=== PATIENT | female | born 1995 | race Caucasian/White ===

== ENCOUNTER 2017-02-06 21:06 | Outpatient (CLI) | payer OTHER ==
[2017-02-06 21:43] LABS: APPEARANCE,URINE CLOUDY; BILIRUBIN,URINE NEGATIVE (NEGATIVE); GLUCOSE, URINE NEGATIVE (NEGATIVE); KETONES,URINE NEGATIVE (NEGATIVE); LEUKOCYTE ESTERASE,URINE LARGE (NEGATIVE); NITRITE,URINE NEGATIVE (NEGATIVE); PROTEIN,URINE NEGATIVE (NEGATIVE); URINE SPECIFIC GRAVITY 1.012; UROBILINOGEN,URINE NEGATIVE mg/dL (<2.0)
[2017-02-06 21:51] LABS: URINE BARBITURATES SCREEN NEGATIVE; URINE METHADONE SCREEN NEGATIVE; URINE OPIATES LOW NEGATIVE; URINE PHENCYCLIDINE SCREEN NEGATIVE
[2017-02-06 21:58] LABS: AMNISURE (ROM) NEGATIVE (NEGATIVE)
--- NOTE | 2017-02-06 22:12 | Non Stress Test Report ---
Non Stress Test Datetime Report Generated by CPN: 02/06/2017 22:11 DEMOGRAPHIC Test Number: 1 EGA NST: 36.2 INDICATION Indication for Study: Ordered by Provider MONITORING Monitor Explained: Monitor Explained; Test Explained; Patient Verbalized Understanding Time on Monitor: 02/06/2017 21:24 Time off Monitor: 02/06/2017 21:58 NST Duration: 34 NST INTERVENTIONS NST Interventions: PO Hydration; Reposition Patient Physician Notified NST: Dr. Neilsen BABY A: [id number] BABY A Movement : Present Contraction Frequency : none FHR Baseline : 140 Accelerations : 15X15 Decelerations : None Variability : Moderate 6-25bpm NST Review: Meets Criteria for Reactive NST NST Review and Verified By : MIKI Clemens Results: Reactive NST REPORT Report Trigger: Send Report (Annotations: Data stored by [facility] on behalf of user)
== END 2017-02-06 21:18 | disposition home or self-care (01) ==
LOC: LC 21:06
PROVIDERS: ATTEND Specialist
PROC: 4A1HXCZ Monitoring of Products of Conception, Cardiac Rate, External Approach (ICD-10-PCS; principal; 2017-02-06)
DX: Z36 Encounter for antenatal screening of mother (principal); Z3A.36 36 weeks gestation of pregnancy
CPT/HCPCS: 59025; 80307; 81001; 84112

== ENCOUNTER 2017-02-17 21:26 | Outpatient (CLI) | payer OTHER ==
[2017-02-17 22:30] LABS: AMNISURE (ROM) NEGATIVE (NEGATIVE)
[2017-02-17 22:33] LABS: ABSOLUTE LYMPHOCYTES (AUTO) 1.5 10^3/uL (0.5-4.7); ABSOLUTE MONOCYTES (AUTO) 0.6 10^3/uL (0.1-1.4); ABSOLUTE NEUT (AUTO) 8.1 10^3/uL (1.7-8.2); BASOPHILS % (AUTO) 0.4 % (0-2); EOSINOPHILS % (AUTO) 0.4 % (0-6); HEMATOCRIT 38.2 % (36.0-47.0); HEMOGLOBIN 13.4 g/dL (12.0-15.5); LYMPHOCYTES % (AUTO) 14.8 % (13-45); MEAN CORPUSCULAR HEMOGLOBIN 33.1 pg (27.0-33.4); MEAN CORPUSCULAR HGB CONC 35.1 g/dL (32.0-36.0); MEAN CORPUSCULAR VOLUME 94 fl (80-97); MONOCYTES % (AUTO) 5.8 % (3-13); RED BLOOD COUNT 4.06 10^6/uL (3.72-5.28); RED CELL DISTRIBUTION WIDTH 13.4 % (11.5-14.0); SEGMENTED NEUTROPHILS % (AUTO) 78.6 % (42-78); WHITE BLOOD COUNT 10.4 10^3/uL (4.0-10.5)
--- NOTE | 2017-02-17 22:52 | RADIOLOGY REPORT (SQ) ---
EXAM DESCRIPTION: U/S OB LIMITED COMPLETED DATE/TIME: 02/17/2017 10:38 pm REASON FOR STUDY: placenta status location, status,post fall COMPARISON: None. TECHNIQUE: Limited transabdominal grayscale ultrasound for evaluation of specific requested obstetri guillermo parameters. LIMITATIONS: None. FINDINGS: LUIS: 5.9 cm cm. FHR: 162 beats per minute. PRESENTATION: Cephalic. OTHER: Fundal placenta IMPRESSION: LIMITED OBSTETRICAL ULTRASOUND WITH MEASURED PARAMETERS DELINEATED ABOVE. Trimester of : Third trimester - 28 weeks to delivery. TECHNICAL DOCUMENTATION: JOB ID: [id number] [email or web address]- All Rights Reserved
[2017-02-17 22:56] LABS: APPEARANCE,URINE SLIGHTLY-CLOUDY; BILIRUBIN,URINE NEGATIVE (NEGATIVE); GLUCOSE, URINE NEGATIVE (NEGATIVE); KETONES,URINE TRACE mg/dL (NEGATIVE); LEUKOCYTE ESTERASE,URINE LARGE (NEGATIVE); NITRITE,URINE NEGATIVE (NEGATIVE); PROTEIN,URINE NEGATIVE (NEGATIVE); URINE SPECIFIC GRAVITY 1.006; UROBILINOGEN,URINE NEGATIVE mg/dL (<2.0)
[2017-02-17 23:14] LABS: URINE BARBITURATES SCREEN NEGATIVE; URINE METHADONE SCREEN NEGATIVE; URINE OPIATES LOW NEGATIVE; URINE PHENCYCLIDINE SCREEN NEGATIVE
[2017-02-18 01:37] LABS: TOTAL RBC COUNT 2000
[2017-02-18 01:40] LABS: TYPE IN FILE? TYPE IN FILE
[2017-02-18 03:28] VITALS: BP 133/77
== END 2017-02-18 03:25 | disposition home or self-care (01) ==
LOC: LC 21:26
PROVIDERS: ATTEND Obstetrics & Gynecology
PROC: 4A1HXCZ Monitoring of Products of Conception, Cardiac Rate, External Approach (ICD-10-PCS; principal; 2017-02-17)
DX: Z36 Encounter for antenatal screening of mother (principal); Z3A.37 37 weeks gestation of pregnancy; W19.XXXA Unspecified fall, initial encounter
CPT/HCPCS: 59025; 84112; 86900; 86901; 36415; 86850; 85025; 81005; 85460; 80307; 76815; J2790

== ENCOUNTER → 2017-02-27 | Outpatient (CLI) | payer OTHER ==
--- NOTE | 2017-02-27 20:05 | Non Stress Test Report ---
Non Stress Test Datetime Report Generated by CPN: 02/27/2017 20:04 DEMOGRAPHIC Test Number: 2 EGA NST: 37.6 INDICATION Indication for Study: Decreased Movement; Other Indication for Study (NST) Other: fall VITAL SIGNS Temperature - NST: 98.0 Pulse - NST: 72 RESP - NST: 18 NBPSYS NST: 133 NBPDIA NST: 77 URINE RESULTS Urine Protein, NST: Negative Urine Ketones - NST: Positive Urine Glucose - NST: Negative Urine Blood - NST: Negative MONITORING Monitor Explained: Monitor Explained; Test Explained; Patient Verbalized Understanding Time on Monitor: 02/17/2017 21:43 Time off Monitor: 02/18/2017 03:01 NST Duration: 318 NST INTERVENTIONS NST Interventions: PO Hydration; Other NST Interventions Other: ultrasound Physician Notified NST: dr milan BABY A: [id number] BABY A Movement : Decreased Contraction Frequency : irregular FHR Baseline : 140 Accelerations : 15X15 Decelerations : None Variability : Moderate 6-25bpm NST Review: Meets Criteria for Reactive NST NST Review and Verified By : Kenroy Navarro RN NST Results: Reactive NST COMMENTS NST Comments: positive kb scan received two doses of rhogam, placental status per ultrasound fundal without issue. NST REPORT Report Trigger: Send Report
[2017-02-27 20:30] LABS: APPEARANCE,URINE SLIGHTLY-CLOUDY; BILIRUBIN,URINE NEGATIVE (NEGATIVE); GLUCOSE, URINE NEGATIVE (NEGATIVE); KETONES,URINE NEGATIVE (NEGATIVE); LEUKOCYTE ESTERASE,URINE LARGE (NEGATIVE); NITRITE,URINE NEGATIVE (NEGATIVE); PROTEIN,URINE 30 mg/dL (NEGATIVE); URINE SPECIFIC GRAVITY 1.017; UROBILINOGEN,URINE NEGATIVE mg/dL (<2.0)
[2017-02-27 20:35] LABS: AMNISURE (ROM) NEGATIVE (NEGATIVE)
[2017-02-27 20:51] LABS: URINE BARBITURATES SCREEN NEGATIVE; URINE METHADONE SCREEN NEGATIVE; URINE OPIATES LOW NEGATIVE; URINE PHENCYCLIDINE SCREEN NEGATIVE
--- NOTE | 2017-02-27 21:58 | Non Stress Test Report ---
Non Stress Test Datetime Report Generated by CPN: 02/27/2017 21:57 DEMOGRAPHIC Test Number: 3 EGA NST: 39.2 INDICATION Indication for Study: Ordered by Provider Indication for Study (NST) Other: LC MONITORING Monitor Explained: Monitor Explained; Test Explained; Patient Verbalized Understanding; Other Time on Monitor: 02/27/2017 20:16 Time off Monitor: 02/27/2017 21:44 NST Duration: 88 NST INTERVENTIONS NST Interventions: None BABY A Movement : Present Contraction Frequency : irreg FHR Baseline : 145 Accelerations : 15X15 Decelerations : None Variability : Moderate 6-25bpm NST Review: Meets Criteria for Reactive NST NST Review and Verified By : B Daniel, RN NST Results: Reactive NST REPORT Report Trigger: Send Report
== END | disposition home or self-care (01) ==
LOC: LC 19:43
PROVIDERS: ATTEND Specialist
PROC: 4A1HXCZ Monitoring of Products of Conception, Cardiac Rate, External Approach (ICD-10-PCS; principal; 2017-02-27)
DX: O36.8130 Decreased fetal movements, third trimester, not applicable or unspecified (principal); Z3A.37 37 weeks gestation of pregnancy
CPT/HCPCS: 59025; 80307; 81005; 84112

== ENCOUNTER 2017-03-04 22:01 | Outpatient (CLI) | payer OTHER ==
[2017-03-04 22:40] LABS: APPEARANCE,URINE SLIGHTLY-CLOUDY; BILIRUBIN,URINE NEGATIVE (NEGATIVE); GLUCOSE, URINE NEGATIVE (NEGATIVE); KETONES,URINE NEGATIVE (NEGATIVE); LEUKOCYTE ESTERASE,URINE MODERATE (NEGATIVE); NITRITE,URINE NEGATIVE (NEGATIVE); PROTEIN,URINE 30 mg/dL (NEGATIVE); URINE SPECIFIC GRAVITY 1.011; UROBILINOGEN,URINE NEGATIVE mg/dL (<2.0)
[2017-03-04 23:07] LABS: URINE BARBITURATES SCREEN NEGATIVE; URINE METHADONE SCREEN NEGATIVE; URINE OPIATES LOW NEGATIVE; URINE PHENCYCLIDINE SCREEN NEGATIVE
--- NOTE | 2017-03-04 23:45 | Non Stress Test Report ---
Non Stress Test Datetime Report Generated by CPN: 03/04/2017 23:45 DEMOGRAPHIC EGA NST: 40.0 INDICATION Indication for Study: Other Indication for Study (NST) Other: LC URINE RESULTS Urine Protein, NST: Positive Urine Ketones - NST: Negative Urine Glucose - NST: Negative Urine Blood - NST: Negative MONITORING Monitor Explained: Monitor Explained; Test Explained; Patient Verbalized Understanding Time on Monitor: 03/04/2017 22:24 Time off Monitor: 03/04/2017 23:15 NST Duration: 51 NST INTERVENTIONS NST Interventions: PO Hydration; Reposition Patient Physician Notified NST: Dr Harry BABY A Movement : Present Contraction Frequency : Irreg FHR Baseline : 150 Accelerations : 15X15 Decelerations : None Variability : Moderate 6-25bpm NST Review: Meets Criteria for Reactive NST NST Review and Verified By : Kenroy Navarro RN NST Results: Reactive NST REPORT Report Trigger: Send Report
== END 2017-03-04 23:26 | disposition home or self-care (01) ==
LOC: LC 22:01
PROVIDERS: ATTEND Student in an Organized Health Care Education/Training Program
PROC: 4A1HXCZ Monitoring of Products of Conception, Cardiac Rate, External Approach (ICD-10-PCS; principal; 2017-03-04)
DX: O47.1 False labor at or after 37 completed weeks of gestation (principal); Z3A.40 40 weeks gestation of pregnancy
CPT/HCPCS: 59025; 80307; 81005

== ENCOUNTER 2017-03-05 15:02 | Inpatient (IN) | payer OTHER ==
[2017-03-05] MEDS ORDERED: DINOPROSTONE 10 MG VAGINAL INSERT.SR PV PRN (15:28)
[2017-03-05] MEDS ORDERED: OXYTOCIN/NORMAL SALINE 20 UNIT/1,000 ML RTUINJ IV PRN (15:28)
[2017-03-05] MEDS ORDERED: RINGERS SOLUTION,LACTATED 300 ML IV ONE (15:28)
[2017-03-05 15:37] LABS: APPEARANCE,URINE SLIGHTLY-CLOUDY; BILIRUBIN,URINE NEGATIVE (NEGATIVE); GLUCOSE, URINE NEGATIVE (NEGATIVE); KETONES,URINE NEGATIVE (NEGATIVE); LEUKOCYTE ESTERASE,URINE MODERATE (NEGATIVE); NITRITE,URINE NEGATIVE (NEGATIVE); PROTEIN,URINE 30 mg/dL (NEGATIVE); URINE SPECIFIC GRAVITY 1.023; UROBILINOGEN,URINE NEGATIVE mg/dL (<2.0)
[2017-03-05 15:55] LABS: URINE BARBITURATES SCREEN NEGATIVE; URINE METHADONE SCREEN NEGATIVE; URINE OPIATES LOW NEGATIVE; URINE PHENCYCLIDINE SCREEN NEGATIVE
[2017-03-05] MEDS ORDERED: DINOPROSTONE 10 MG VAGINAL INSERT.SR ONE (16:25)
[2017-03-05 16:28] LABS: ABSOLUTE LYMPHOCYTES (AUTO) 1.2 10^3/uL (0.5-4.7); ABSOLUTE MONOCYTES (AUTO) 0.6 10^3/uL (0.1-1.4); BASOPHILS % (AUTO) 0.5 % (0-2); EOSINOPHILS % (AUTO) 0.2 % (0-6); HEMATOCRIT 35.6 % (36.0-47.0); HEMOGLOBIN 12.5 g/dL (12.0-15.5); HGB HCT DIFFERENCE 1.9; LYMPHOCYTES % (AUTO) 15.7 % (13-45); MEAN CORPUSCULAR HEMOGLOBIN 32.6 pg (27.0-33.4); MEAN CORPUSCULAR HGB CONC 35.2 g/dL (32.0-36.0); MEAN CORPUSCULAR VOLUME 93 fl (80-97); MONOCYTES % (AUTO) 7.2 % (3-13); RED BLOOD COUNT 3.84 10^6/uL (3.72-5.28); RED CELL DISTRIBUTION WIDTH 13.8 % (11.5-14.0); SEGMENTED NEUTROPHILS % (AUTO) 76.4 % (42-78); WHITE BLOOD COUNT 7.9 10^3/uL (4.0-10.5)
[2017-03-05] MEDS: RINGERS SOLUTION,LACTATED 1,000 ML IV PRN (17:34)
[2017-03-06] MEDS ORDERED: PENICILLIN G-K 5 MILLION UNIT VIAL ONE (05:38)
[2017-03-06] MEDS: RINGERS SOLUTION,LACTATED 1,000 ML IV PRN (05:45)
[2017-03-06] MEDS ORDERED: OXYTOCIN/NORMAL SALINE 20 UNIT/1,000 ML RTUINJ ONE (05:55)
[2017-03-06] MEDS ORDERED: EPHEDRINE SULFATE INJ 50 MG/1 ML AMPULE ONE (06:07)
[2017-03-06] MEDS ORDERED: FENTANYL CITRATE INJ/PF 100 MCG/2 ML AMPUL ONE (06:07)
[2017-03-06] MEDS ORDERED: PHENYLEPHRINE HCL INJ/PF 10 MG/1 ML SDV ONE (06:08)
[2017-03-06] MEDS ORDERED: BUPIVACAINE HCL 0.25 % INJ/PF (2.5 MG/1 ML) 30 ML VIAL ONE (06:08)
[2017-03-06] MEDS ORDERED: FENTANYL/BUPIVACAINE/NS/PF 200 MCG/100 ML RTUINJ EPI ONE (06:08)
[2017-03-06] MEDS ORDERED: MISOPROSTOL 0.2 MG TABLET ONE (08:03)
[2017-03-06] MEDS ORDERED: LIDOCAINE 1% INJ-PF (10 MG/ML) 30 ML SDV ONE (08:03)
--- NOTE | 2017-03-06 11:12 | Delivery Summary ---
Del Sum A-C Datetime Report Generated by CPN: 03/06/2017 11:12 DELIVERY PERSONNEL DELIVERY PERSONNEL: [id number] Delivery Doctor:: Litzy Rivera CNM Labor and Delivery Nurse:: Chika Higginbotham RNregister of wills Nurse:: Holley Berrios Emts/GLUING MACHINE ADJUSTER: Fabienne Semar, RN ENDOCRINOLOGY Emts/GLUING MACHINE ADJUSTER: June Dyeda MATERNAL INFORMATION Delivery Anesthesia: Epidural Medications After Delivery: Pitocin Bolus-Please Comment; Pitocin Drip 20 Units/1000ml NSS Estimated Blood Loss (ml): 250 Maternal Complications: None Provider Comments: SVDVM over perineal and labial lacerations, with body cord, partial nuchal and compound right hand, baby somersaulted through, mouth suctioned with bulb. vigorous, to mothers abd. Cord clamped x2 cut per FOB, Placenta delivered via freeman. Placenta very small with marginal cord insertion and thin cord. Lacerations repaired, hemostasis acheived. EBL 250. Apgars 8,9. Mother and infant stable. LABOR SUMMARY EDC: 03/04/2017 00:00 No. Babies in Womb: 1 Attempted: No Labor Anesthesia: Epidural LABOR INFORMATION Reason for Induction: Oligohydramnios Onset of Labor: 03/06/2017 04:19 Complete Dilatation: 03/06/2017 08:21 Cervical Ripening Agents: Cervidil Oxytocin: Augmentation Group B Beta Strep: positive Antibiotics # of Doses: 1 Antibiotics Time of Last Dose: 0544 Name of Antibiotic Given: PCN Steroids Given: None Reason Steroids Not Administered: Not Applicable MEMBRANES Membranes Rupture Method: Spontaneous Rupture of Membranes: 03/06/2017 04:19 Length of Rupture (hr): 5.23 Amniotic Fluid Color: Clear Amniotic Fluid Amount: Small Amniotic Fluid Odor: Normal STAGES OF LABOR Stage 1 hr: 4 Stage 1 min: 2 Stage 2 hr: 1 Stage 2 min: 12 Stage 3 hr: 0 Stage 3 min: 6 Total Time in Labor hr: 5 Total Time in Labor min: 20 VAGINAL DELIVERY Episiotomy: None Laceration Type: Perineal Other Laceration: bilateral labial Laceration Repair: Yes Laceration Repair Note: 1* bilateral labial lacs repaired with 2.0 chromic and 2* perineal lac, lidocaine used for repair Sponge Count Correct: N/A Sharps Count Correct: N/A CSECTION DELIVERY Primary Indication: N/A Secondary Indication: N/A CSection Incidence: N/A Labor: N/A Elective: N/A CSection Incision: N/A BABY A INFORMATION Delivery Date/Time: 03/06/2017 09:33 Method of Delivery: Vaginal Born in Route : No : N/A Forceps: N/A Vacuum Extraction: N/A Shoulder Dystocia : No PRESENTATION/POSITION BABY A Presentation: Cephalic Cephalic Presentation: Vertex Vertex Position: Right Occipital Anterior Breech Presentation: N/A PLACENTA INFORMATION BABY A Placenta Delivery Time : 03/06/2017 09:39 Placenta Method of Delivery: Spontaneous Placenta Status: Retained SCORES BABY A Heart Rate 1 min: >100 bpm Resp Effort 1 min: Good Cry Reflex Irritability 1 min: Cough or Sneeze or Pulls Away Muscle Tone 1 min: Active Motion Color 1 min: Blue/Pale Resuscitation Effort 1 min: Tactile Stimulation SCORE 1 MIN: 8 Heart Rate 5 min: >100 bpm Resp Effort 5 min: Good Cry Reflex Irritability 5 min: Cough or Sneeze or Pulls Away Muscle Tone 5 min: Active Motion Color 5 min: Body [place], Extremities Blue Resuscitation Effort 5 min: Tactile Stimulation SCORE 5 MIN: 9 INFORMATION BABY A Gestational Age at Delivery: 40.2 Gestational Status: Full Term- 39- 40.6 Weeks Infant Outcome : Liveborn Infant Condition : Stable Sex: Male IDENTIFICATION BABY A Infant Verification Date/Time: 03/06/2017 10:40 ID Band Number: [id number] Mother's Name Verified: Yes Infant RN Verifying : APearl Higginbotham RN BL Malissa RN WEIGHT/LENGTH BABY A Infant Birthweight (gm): 2580 Infant Weight (lb): 5 Weight (oz): 11 Infant Length (in): 13.75 Infant Length (cm): 34.93 CORD INFORMATION BABY A No. Cord Vessels: 3 Nuchal Cord : Around Neck x1, Loose Nuchal Cord- Other: compound right hand, arm cord Cord Blood Taken: Yes-For Eval (Mom's Blood Type - or O+) Infant Suction: Mouth; Nose ASSESSMENT BABY A Complications: Multiple Variable Decels; Oligohydramnios Physical Findings at Delivery: Within Normal Limits Infant Respirations: Appears Normal Skin to Skin: Yes Nurses' Association Counselor/ALS Called : No Infant Care By: B Berrios RN Transferred To: Remains with Mother BABY B INFORMATION : N/A SIGNATURES Assignment: Jazzy House MD Signature: with User ID: [email or web address] : with User ID: [email or web address] : I was personally available for consultation and serving as supervising physician for the MLP.
--- NOTE | 2017-03-06 11:46 | Admission Physical ---
Datetime Report Generated by CPN: 03/06/2017 11:45 CURRENT ADMISSION Hx Assessment: The History has been Reviewed and is Current Chief Complaint: Sent from OB Office for Evaluation and Treatment - Please Specify Chief Complaint Other: sent in from office for luis of 4.8, efw: measuring 3 weeks behind by todays sono Indication for Induction: IUGR; Oligohydramnios Admit Plan: Admit to Unit; Initiate Labor Induction Protocol ALLERGIES Medication Allergies: Yes Medication Allergies: iodine (02/27/2017); acyclovir (02/27/2017) Medication Allergies: iodine (02/17/2017); acyclovir (02/17/2017) Medication Allergies: acyclovir, iodine Latex: No Latex Allergies Food Allergies: sammie Environmental Allergies: N/A OBSTETRICAL HISTORY EDC: 03/04/2017 00:00 : 1 Para: 0 Term: 0 : 0 SAB: 0 IAB: 0 Ectopic: 0 Livin Cesareans: 0 VBACs: 0 Multiple Births: 0 Gestational Diabetes: No Rh Sensitization: No Incompetent Cervix: No SHANNAN: No Infertility: No ART Treatment: No Uterine Anomaly: No IUGR: No Hx Previous C/S: No Macrosomia: No Hx Loss/Stillborn: No PIH: No Placenta Previa/Abruption: No Depression/PP Depression: No PTL/PROM: No Post Hemorrhage: No Current Procedures: Ultrasound; NST Obstetrical History Comments: G1- Current SEE RECORDS Alcohol: No Marijuana : No Cocaine: No Other Illicit Drugs: No Cigarettes: Never Smoker. 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 Surgery: No Heart Disease: No Hosp/Surgery: No Autoimmune Disorder: No Anesthetic Complications: No Kidney Disease: No Abnormal Pap Smear: No Neuro/Epilepsy: No Psychiatric Disorders: No Other Medical Diseases: No Hepatitis/Liver Disease: Yes Significant Family History: No Varicosities/Phlebitis: No Trauma/Violence : No Thyroid Dysfunction: No Medical History Comments: Hep C + (likely congenital) INFECTIOUS HISTORY Gonorrhea: No Genital Herpes: No Chlamydia: No Tuberculosis: No Syphilis: No Hepatitis: Yes HIV/AIDS Exposure: No Rash or Viral Illness: No HPV: No Infectious History Comments: Hep-C+ (likely congenital) PHYSICAL EXAM General: Normal HEENT: Normal Neurologic: Normal Thyroid: Deferred Heart: Normal Lungs: Normal Breast: Normal Back: Normal Abdomen: Normal Genitourinary Exam: Normal Extremities: Normal DTRs: Normal Pelvic Type: Adequate Vital Signs: Reviewed VAGINAL EXAM Dilatation: 1 Effacement: 75 Station: -2 Contraction Comments: rare MEMBRANES Membranes: Intact FETUS A EGA: 40.1 Monitoring: External US FHR- Baseline: 145 Variability: Moderate 6-25bpm Accelerations: 15X15 Decelerations: None Estimated Weight (gm): 3300 Presentation: Vertex Admit Comment: Pt sent from [facility] for IOL LUIS: 4.8, efw: 3 weeks behind Pt was transfer from [place] RH negative, received rhogam Hep C +, consider GI referral for Harvoni tx after delivery No FSE in labor Cervidil over night GBS + tx with start of pitocin. Plan for Pitocin in AM PLANS FOR LABOR AND DELIVERY Labor and Delivery: None Pain Management: Natural Feeding Preference: Breast Benefit of Breast Feed Discussed: Yes Circumcision: No INFORMED CONSENT Assignment: Devyn Muse DO Signature: with User ID: [email or web address] : with User ID: [email or web address]
[2017-03-06] MEDS ORDERED: ZOLPIDEM TARTRATE 5 MG TABLET PO PRN (11:52)
[2017-03-06] MEDS ORDERED: ACETAMINOPHEN WITH CODEINE #3 TABLET PO PRN ×2 (11:52)
[2017-03-06] MEDS ORDERED: DIPH/PERTUSS(ACELL)/TETANUS VAC/PF 0.5 ML SYR (>=10YO) IM PRN (11:52)
[2017-03-06] MEDS ORDERED: BENZOCAINE/MENTHOL AEROSOL SPRAY 56 ML TOP PRN (11:52)
[2017-03-06] MEDS ORDERED: DIBUCAINE 1% OINTMENT 28 GM TP PRN (11:52)
[2017-03-06] MEDS ORDERED: MEASLES,MUMPS&RUBELLA VACC/PF 0.5 ML VIAL SUBCUT PRN (11:52)
[2017-03-06] MEDS ORDERED: OXYTOCIN/NORMAL SALINE 20 UNIT/1,000 ML RTUINJ IV PRN (11:52)
[2017-03-06] MEDS: IBUPROFEN 800 MG TABLET PO SCH ×2 (14:06→21:07)
[2017-03-06] MEDS: DOCUSATE SODIUM 100 MG CAPSULE PO SCH (18:09)
[2017-03-06] MEDS: FERROUS SULFATE 325 MG TABLET PO SCH (18:10)
[2017-03-07] MEDS: IBUPROFEN 800 MG TABLET PO SCH ×3 (06:55→22:30)
[2017-03-07 07:44] LABS: HEMATOCRIT 29.3 % (36.0-47.0); HEMOGLOBIN 10.3 g/dL (12.0-15.5); HGB HCT DIFFERENCE 1.6; MEAN CORPUSCULAR HEMOGLOBIN 32.6 pg (27.0-33.4); MEAN CORPUSCULAR HGB CONC 34.9 g/dL (32.0-36.0); MEAN CORPUSCULAR VOLUME 93 fl (80-97); RED BLOOD COUNT 3.14 10^6/uL (3.72-5.28); WHITE BLOOD COUNT 8.4 10^3/uL (4.0-10.5)
--- NOTE | 2017-03-07 09:25 | PDOC PROGRESS REPORT ---
Subjective-OB Subjective: Post Delivery Day: 1 21 year old. Denies any needs at this time, states lochia is stable, pain well controlled, voiding without difficulty. Physical Exam (OB) Vital Signs: Temp Pulse Resp BP Pulse Ox 98.4 F 71 16 130/76 H 98 03/07/17 08:15 03/07/17 08:15 03/07/17 08:15 03/07/17 08:15 03/07/17 08:15 Intake & Output 03/06/17 03/07/17 03/08/17 06:59 06:59 06:59 Weight 79.55 kg - PIH/Pre-Eclampsia Clonus: Negative Headache: Absent Epigastric Pain: No Visual Changes: No - Lochia Lochia Amount: Small 10-25 ml Lochia Color: Rubra/Red - Abdomen Description: Tender, Soft, Round Hernia Present: No Fundal Description: Firm Fundal Height: u/u - u/2 Objective-Diagnostic Laboratory: 03/07/17 07:01 03/07/17 03/07/17 07:01 07:01 WBC 8.4 RBC 3.14 L Hgb 10.3 L D Hct 29.3 L MCV 93 MCH 32.6 MCHC 34.9 RDW 14.0 Plt Count 102 L Blood Type O NEGATIVE Assessment and Plan(PN) - Assessment and Plan (1) Acute blood loss anemia Is this a current diagnosis for this admission?: Yes Plan: ferrous sulfate increase dietary iron (2) Intrauterine growth restriction, delivered, current hospitalization Is this a current diagnosis for this admission?: Yes Plan: n/a delivered (3) Vaginal delivery Is this a current diagnosis for this admission?: Yes Plan: routine pp care - Time Spent with Patient Time with patient: Less than 15 minutes Critical Time spent with patient: Less than 15 minutes Medications reviewed and adjusted accordingly: Yes - Disposition Anticipated Discharge: Home Within: within 24 hours
[2017-03-07] MEDS: SENNOSIDES/DOCUSATE 8.6-50 MG 1 EACH TABLET PO SCH (09:40)
[2017-03-07] MEDS: FERROUS SULFATE 325 MG TABLET PO SCH ×2 (09:41→18:27)
[2017-03-07] MEDS: DOCUSATE SODIUM 100 MG CAPSULE PO SCH ×2 (09:41→18:27)
[2017-03-07] MEDS: PRENATAL VITAMIN W-O CA NO5/FE FUMARATE/FA CAPSULE PO SCH (09:41)
[2017-03-07] MEDS ORDERED: ONDANSETRON 4 MG TAB.RAPDIS PO PRN (11:44)
[2017-03-07] MEDS ORDERED: MEASLES,MUMPS&RUBELLA VACC/PF 0.5 ML VIAL SUBCUT PRN (15:00)
[2017-03-07] MEDS ORDERED: ZOLPIDEM TARTRATE 5 MG TABLET PO PRN (15:00)
[2017-03-07] MEDS ORDERED: DIPH/PERTUSS(ACELL)/TETANUS VAC/PF 0.5 ML SYR (>=10YO) IM PRN (15:00)
[2017-03-08] MEDS ORDERED: GLYCERIN/WITCH HAZEL LEAF 1 EACH MED..PAD TP PRN (04:00)
[2017-03-08] MEDS: IBUPROFEN 800 MG TABLET PO SCH ×2 (05:22→13:14)
[2017-03-08 08:12] VITALS: BP 133/74
--- NOTE | 2017-03-08 09:22 | PDOC PROGRESS REPORT ---
Subjective-OB Subjective: Post Delivery Day: 21 year old. Denies any needs at this time Doing well, pumping breasts, hsb at BS, , baby not going home today , problem with BS Physical Exam (OB) Vital Signs: Temp Pulse Resp BP Pulse Ox 97.8 F 96 16 133/74 H 99 03/08/17 07:39 03/08/17 07:39 03/08/17 07:39 03/08/17 07:39 03/08/17 07:39 Intake & Output 03/07/17 03/08/17 03/09/17 06:59 06:59 06:59 Intake Total 300 Balance 300 - PIH/Pre-Eclampsia DTR's: 2 + Clonus: Negative Headache: Absent Epigastric Pain: No Visual Changes: No - Lochia Lochia Amount: Small 10-25 ml Lochia Color: Rubra/Red - Abdomen Description: Soft, Flat Hernia Present: No Fundal Description: Firm, Midline Fundal Height: u/3 - u/4 Objective-Diagnostic Laboratory: 03/07/17 07:01 03/07/17 07:01 Blood Type O NEGATIVE Assessment and Plan(PN) - Assessment and Plan (1) Acute blood loss anemia Is this a current diagnosis for this admission?: Yes (2) Vaginal delivery Is this a current diagnosis for this admission?: Yes (3) Intrauterine growth restriction, delivered, current hospitalization Is this a current diagnosis for this admission?: Yes - Time Spent with Patient Time with patient: Less than 15 minutes Medications reviewed and adjusted accordingly: Yes - Disposition Anticipated Discharge: Home Within: Other - home today
--- NOTE | 2017-03-08 09:27 | PDOC DISCHARGE SUMMARY ---
Final Diagnosis Discharge Date: 03/08/17 - Final Diagnosis (1) Acute blood loss anemia Is this a current diagnosis for this admission?: Yes (2) Vaginal delivery Is this a current diagnosis for this admission?: Yes (3) Intrauterine growth restriction, delivered, current hospitalization Is this a current diagnosis for this admission?: Yes Discharge Data - Discharge Medication Home Medications: No122/Iron/Folic Acid [ Multi Tablet] 1 each PO DAILY MDD 1tab 02/06/17 Gestational Age: 40.1 Reason(s) for Admission: Induction of Labor, Group B Strep Positive Admission Note: IUGR, Oligohydramnios Procedures: NST, Ultrasound Intrapartum Procedure(s): Spontaneous Vaginal Delivery Complication(s): Laceration-Perineal, Laceration-Labial Laceration-Degree: 1st - [employer]arm[employer] Data Baby 1 Male Weight: 2.58 kg Home with Mother: No Complications: Yes - blood sugar - Diagnosis Test Laboratory: Temp Pulse Resp BP Pulse Ox 97.8 F 96 16 133/74 H 99 03/08/17 07:39 03/08/17 07:39 03/08/17 07:39 03/08/17 07:39 03/08/17 07:39 03/05/17 03/05/17 03/07/17 15:16 16:07 07:01 RBC 3.84 3.14 L Hgb 12.5 10.3 L D Hct 35.6 L 29.3 L Urine Opiates Screen NEGATIVE - Discharge information/Instructions Discharge Activity: Activity As Tolerated, No Lifting Over 10 Pounds, No Lifting /Push/Pulling, Pelvic Rest Discharge Diet: As Tolerated, Regular Disposition: HOME, SELF-CARE Follow up with: [facility] in: 4, Weeks
[2017-03-08] MEDS: PRENATAL VITAMIN W-O CA NO5/FE FUMARATE/FA CAPSULE PO SCH (10:35)
[2017-03-08] MEDS: DOCUSATE SODIUM 100 MG CAPSULE PO SCH (10:35)
[2017-03-08] MEDS: SENNOSIDES/DOCUSATE 8.6-50 MG 1 EACH TABLET PO SCH (10:35)
[2017-03-08] MEDS: FERROUS SULFATE 325 MG TABLET PO SCH (10:35)
== END 2017-03-08 13:41 | disposition home or self-care (01) | DRG 774 ==
LOC: LR 15:02 → 2N 03-06 11:44
PROVIDERS: ADMIT Obstetrics & Gynecology; ATTEND Obstetrics & Gynecology
PROC: 10E0XZZ Delivery of Products of Conception, External Approach (ICD-10-PCS; principal; 2017-03-06)
PROC: 0HQ9XZZ Repair Perineum Skin, External Approach (ICD-10-PCS; 2017-03-06)
PROC: 4A1HXCZ Monitoring of Products of Conception, Cardiac Rate, External Approach (ICD-10-PCS; 2017-03-06)
PROC: 3E0234Z Introduction of Serum, Toxoid and Vaccine into Muscle, Percutaneous Approach (ICD-10-PCS; 2017-03-06)
DX: O41.03X0 Oligohydramnios, third trimester, not applicable or unspecified (principal); O99.834 Other infection carrier state complicating childbirth; D62 Acute posthemorrhagic anemia; O36.5930 Maternal care for other known or suspected poor fetal growth, third trimester, not applicable or unspecified; O99.02 Anemia complicating childbirth; O76 Abnormality in fetal heart rate and rhythm complicating labor and delivery; Z3A.40 40 weeks gestation of pregnancy; O70.0 First degree perineal laceration during delivery; O99.824 Streptococcus B carrier state complicating childbirth; O69.81X0 Labor and delivery complicated by cord around neck, without compression, not applicable or unspecified; O32.6XX0 Maternal care for compound presentation, not applicable or unspecified; O26.893 Other specified pregnancy related conditions, third trimester; Z22.8 Carrier of other infectious diseases; Z67.41 Type O blood, Rh negative; Z37.0 Single live birth
CPT/HCPCS: 36415; 80307; 81005; 85025; 85027; 85461; 86592; 86850; 86870; 86900; 86901; 88307; 94760; J2370; J2540; J2590; J2790; J3010; J3490; S0119

== ENCOUNTER 2017-03-15 12:18 | Emergency (ER) | payer OTHER ==
[2017-03-15] MEDS ORDERED: CEFTRIAXONE 1 GM/D5W RTU 1 GM/50 ML RTUPB IV ONE (12:32)
[2017-03-15] MEDS ORDERED: ACETAMINOPHEN 325 MG TABLET PO ONE (12:33)
--- NOTE | 2017-03-15 12:34 | ER Document Report ---
ED Medical Screen (RME) - General Chief Complaint: Pelvic Pain Stated Complaint: PAIN/ HIGH FEVERS Time Seen by Provider: 03/15/17 12:26 Mode of Arrival: Ambulatory Information source: Patient Notes: 21 yr old female 10 days post vag delivery with group b strep presents with fever since last night I spoke with Dr vargas explained fever tachycardia, dry lips, he defers on u/s , requests cbc , fluids and rocephin I have greeted and performed a rapid initial assessment of this patient. A comprehensive ED assessment and evaluation of the patient, analysis of test results and completion of the medical decision making process will be conducted by additional ED providers. PHYSICAL EXAMINATION: GENERAL: Well-appearing, well-nourished and in no acute distress. HEAD: Atraumatic, normocephalic. EYES: Pupils equal round extraocular movements intact, conjunctiva are normal. ENT: Nares patent NECK: Normal range of motion LUNGS: No respiratory distress Musculoskeletal: Normal range of motion NEUROLOGICAL: Normal speech, normal gait. PSYCH: Normal mood, normal affect. SKIN: dry lips TRAVEL OUTSIDE OF THE [place] IN LAST 30 DAYS: No - Related Data Allergies/Adverse Reactions: acyclovir Allergy (Verified 03/15/17 12:30) iodine Allergy (Verified 03/15/17 12:30) Past Medical History Renal/ Medical History: Denies: Hx Peritoneal Dialysis Physical Exam - Vital signs Vitals: Temp Pulse Resp BP Pulse Ox 100.6 F H 137 H 16 116/79 96 03/15/17 12:23 03/15/17 12:23 03/15/17 12:23 03/15/17 12:23 03/15/17 12:23 Course - Vital Signs Vital signs: Temp Pulse Resp BP Pulse Ox 100.6 F H 137 H 16 116/79 96 03/15/17 12:23 03/15/17 12:23 03/15/17 12:23 03/15/17 12:23 03/15/17 12:23
[2017-03-15] MEDS ORDERED: ONDANSETRON HCL INJ/PF 4 MG/2 ML SDV IV ONE (12:41)
[2017-03-15 12:55] LABS: ABSOLUTE LYMPHOCYTES (AUTO) 0.5 10^3/uL (0.5-4.7); ABSOLUTE MONOCYTES (AUTO) 0.3 10^3/uL (0.1-1.4); ABSOLUTE NEUT (AUTO) 6.8 10^3/uL (1.7-8.2); BASOPHILS % (AUTO) 0.4 % (0-2); EOSINOPHILS % (AUTO) 0.1 % (0-6); HEMATOCRIT 40.6 % (36.0-47.0); HEMOGLOBIN 14.1 g/dL (12.0-15.5); HGB HCT DIFFERENCE 1.7; LYMPHOCYTES % (AUTO) 6.3 % (13-45); MEAN CORPUSCULAR HEMOGLOBIN 32.1 pg (27.0-33.4); MEAN CORPUSCULAR HGB CONC 34.6 g/dL (32.0-36.0); MEAN CORPUSCULAR VOLUME 93 fl (80-97); MONOCYTES % (AUTO) 4.4 % (3-13); RED BLOOD COUNT 4.38 10^6/uL (3.72-5.28); RED CELL DISTRIBUTION WIDTH 14.3 % (11.5-14.0); SEGMENTED NEUTROPHILS % (AUTO) 88.8 % (42-78); WHITE BLOOD COUNT 7.7 10^3/uL (4.0-10.5)
[2017-03-15] MEDS: NORMAL SALINE 1000 ML 1,000 ML IV PRN ×2 (12:59→14:40)
[2017-03-15 13:16] LABS: ALANINE AMINOTRANSFERASE 32 U/L (9-52); ALBUMIN 3.9 g/dL (3.5-5.0); ALKALINE PHOSPHATASE 146 U/L (38-126); ANION GAP 14 (5-19); ASPARTATE AMINO TRANSFERASE 21 U/L (14-36); BILIRUBIN,DIRECT 0.3 mg/dL (0.0-0.4); BILIRUBIN,TOTAL 0.7 mg/dL (0.2-1.3); BLOOD UREA NITROGEN 9 mg/dL (7-20); CALCIUM 9.3 mg/dL (8.4-10.2); CARBON DIOXIDE 21 mmol/L (22-30); CHLORIDE 103 mmol/L (98-107); CREATININE RESULT 0.76 mg/dL (0.52-1.25); GLUCOSE 115 mg/dL (75-110); POTASSIUM 3.9 mmol/L (3.6-5.0); SODIUM 138.2 mmol/L (137-145); TOTAL PROTEIN 7.1 g/dL (6.3-8.2)
--- NOTE | 2017-03-15 14:30 | ER Document Report ---
ED General - General Chief Complaint: Pelvic Pain Stated Complaint: FEVER Time Seen by Provider: 03/15/17 12:26 Mode of Arrival: Ambulatory Information source: Patient Notes: Patient is currently 10 days after a vaginal delivery. Patient was positive for group B strep. Patient is . Patient does report fever since yesterday. Patient reports lower pelvic pain and low back pain. Patient denies any dysuria. Patient states she has had some vaginal discharge but states she spoke with her ASSISTANT WOMEN[employer] COACH who states that this is normal. TRAVEL OUTSIDE OF THE [place] IN LAST 30 DAYS: No - HPI Onset: Yesterday Onset/Duration: Gradual Quality of pain: Achy Pain Level: 3 Associated symptoms: Fever, Other - Pelvic pain, back pain. denies: Chest pain , Nonproductive cough, Productive cough, Nausea, Vomiting Exacerbated by: Movement Relieved by: Denies Similar symptoms previously: No Recently seen / treated by doctor: Yes - Related Data Allergies/Adverse Reactions: acyclovir Allergy (Verified 03/15/17 12:30) iodine Allergy (Verified 03/15/17 12:30) Past Medical History - General Information source: Patient Last Menstrual Period: 10 days - Social History Smoking Status: Never Smoker Frequency of alcohol use: None Drug Abuse: None Occupation: None Lives with: Family Family History: Reviewed & Not Pertinent Patient has suicidal ideation: No Patient has homicidal ideation: No - Medical History Medical History: Negative Renal/ Medical History: Denies: Hx Peritoneal Dialysis Surgical Hx: Negative Review of Systems - Review of Systems Constitutional: Fever. denies: Recent illness EENT: No symptoms reported Cardiovascular: No symptoms reported Respiratory: No symptoms reported. denies: Cough, Short of breath Gastrointestinal: Abdominal pain, Nausea, Poor appetite. denies: Diarrhea, Vomiting, Constipation Genitourinary: No symptoms reported. denies: Dysuria, Flank pain Female Genitourinary: Vaginal discharge. denies: Vaginal bleeding Musculoskeletal: Back pain Skin: No symptoms reported Hematologic/Lymphatic: No symptoms reported Neurological/Psychological: No symptoms reported Physical Exam - Vital signs Vitals: Temp Pulse Resp BP Pulse Ox 100.6 F H 137 H 16 116/79 96 03/15/17 12:23 03/15/17 12:23 03/15/17 12:23 03/15/17 12:23 03/15/17 12:23 - General General appearance: Appears well, Alert In distress: None - HEENT Head: Normocephalic, Atraumatic Eyes: Normal Conjunctiva: Normal Nasal: Normal Mouth/Lips: Normal Mucous membranes: Dry Pharynx: Normal Neck: Normal, Supple. No: Lymphadenopathy - Respiratory Respiratory status: No respiratory distress Chest status: Nontender Breath sounds: Normal. No: Rales, Rhonchi, Stridor, Wheezing Chest palpation: Subcutaneous emphysema - Cardiovascular Rhythm: Tachycardia Heart sounds: S1 appreciated, S2 appreciated Murmur: No - Abdominal Inspection: Normal Distension: No distension Bowel sounds: Normal Tenderness: Tender - suprapubic Organomegaly: No organomegaly - Genitourinary External exam: Laceration - healing lac to 4 oclock position of labia minora Speculum exam: Vaginal discharge Vaginal bleeding: None - Back Back: Tender - lateral side tenderness. No: CVA tenderness, Vertebra tenderness - Extremities General upper extremity: Normal inspection, Normal ROM General lower extremity: Normal inspection, Normal ROM - Neurological Neuro grossly intact: Yes Cognition: Normal Court[place] Coma Scale Eye Opening: Spontaneous [place] Coma Scale Verbal: Oriented [place] Coma Scale Motor: Obeys Commands Court[place] Coma Scale Total: 15 - Psychological Associated symptoms: Normal affect, Normal mood - Skin Skin Temperature: Warm Skin Moisture: Dry Skin Color: Pale Course - Re-evaluation Re-evalutation: 03/15/17 15:30 Patient's vital signs normalized, patient no longer tachycardic. Consulted with Dr. Rice regarding patient presentation and recommends consultation with ASSIST[employer] Dr. Kaur. Does not recommend any ultrasound imaging at this time. Consulted with Dr. Kaur who recommends placing patient on Augmentin 875 twice a day and having her to follow-up in the office on Saturday for recheck. Suspects that patient has likely endometritis Discussed plan of care with patient, discussed worsening signs or symptoms that patient should return immediately for. Patient verbalized understanding and agrees with plan of care at this time. No concern for sepsis at this time. Patient's vital signs have normalized and patient has defervesced. No vomiting while in the emergency department. Patient with no leukocytosis or findings concerning for UTI. 03/15/17 15:46 At discharge patient states that she is concerned about possible mastitis. Patient states she has had intermittent engorgement and intermittent erythema to breast. Patient with mild erythema noted to right breast, breast not tender to palpation. Patient states that she has been continuing to breast-feed as well as pump. 03/15/17 15:59 Dr. Kaur advised of the patient's developing mastitis as well, agrees with plan to have patient continue to breast-feed or pump - Vital Signs Vital signs: Temp Pulse Resp BP Pulse Ox 98.3 F 137 H 12 115/66 98 03/15/17 14:47 03/15/17 12:23 03/15/17 16:01 03/15/17 16:00 03/15/17 16:01 - Laboratory Result Diagrams: 03/15/17 12:42 03/15/17 12:42 Laboratory results interpreted by me: 03/15/17 03/15/17 03/15/17 12:42 12:42 14:25 RDW 14.3 H Seg Neutrophils % 88.8 H Lymphocytes % 6.3 L Carbon Dioxide 21 L Glucose 115 H Alkaline Phosphatase 146 H Urine Ascorbic Acid 40 H 03/15/17 15:32 Labs- Entire Visit 03/15/17 03/15/17 03/15/17 12:42 12:42 14:25 WBC 7.7 RBC 4.38 Hgb 14.1 Hct 40.6 MCV 93 MCH 32.1 MCHC 34.6 RDW 14.3 H Plt Count 204 Seg Neutrophils % 88.8 H Lymphocytes % 6.3 L Monocytes % 4.4 Eosinophils % 0.1 Basophils % 0.4 Absolute Neutrophils 6.8 Absolute Lymphocytes 0.5 Absolute Monocytes 0.3 Absolute Eosinophils 0.0 Absolute Basophils 0.0 Sodium 138.2 Potassium 3.9 Chloride 103 Carbon Dioxide 21 L Anion Gap 14 BUN 9 Creatinine 0.76 Est GFR ( Amer) > 60 Est GFR (Non-Af Amer) > 60 Glucose 115 H Calcium 9.3 Total Bilirubin 0.7 Direct Bilirubin 0.3 Indirect Bilirubin Not Reportable Neonat Total Bilirubin Not Reportable AST 21 ALT 32 Alkaline Phosphatase 146 H Total Protein 7.1 Albumin 3.9 Urine Color YELLOW Urine Appearance CLEAR Urine pH 6.0 Ur Specific Mcdonald 1.013 Urine Protein NEGATIVE Urine Glucose (UA) NEGATIVE Urine Ketones NEGATIVE Urine Blood NEGATIVE Urine Nitrite NEGATIVE Urine Bilirubin NEGATIVE Urine Urobilinogen NEGATIVE Ur Leukocyte Esterase NEGATIVE Urine WBC (Auto) 5 Urine RBC (Auto) 0 Squamous Epi Cells Auto <1 Urine Mucus (Auto) RARE Urine Ascorbic Acid 40 H Discharge - Discharge Clinical Impression: Pelvic pain, hx recent vaginal delivery, Endometritis, Mastitis Fever Qualifiers: Fever type: unspecified Qualified Code(s): R50.9 - Fever, unspecified Condition: Stable Disposition: HOME, SELF-CARE Instructions: Acetaminophen, Antibiotic Therapy ([facility]), Augmentin ([facility]), Endometritis ([facility]), Mastitis ([facility]), Rocephin ([facility]) Additional Instructions: Return immediately for any new or worsening symptoms: Fever, increased pain, vomiting, any new or concerning symptoms Followup with your ASSIST[employer]ACH care provider on Saturday for recheck, call first thing on Saturday morning for an appointment time. Let them know that you are seen in the emergency department and that Dr. Kaur when you to be seen on Saturday for recheck. Prescriptions: Amox Tr/Potassium Clavulanate [Augmentin 875-125 Tablet] 1 tab PO BID 10 Days tablet Referrals: [facility] [Provider Group] - 03/18/17
[2017-03-15 14:49] LABS: APPEARANCE,URINE CLEAR; BILIRUBIN,URINE NEGATIVE (NEGATIVE); GLUCOSE, URINE NEGATIVE (NEGATIVE); KETONES,URINE NEGATIVE (NEGATIVE); LEUKOCYTE ESTERASE,URINE NEGATIVE (NEGATIVE); NITRITE,URINE NEGATIVE (NEGATIVE); PROTEIN,URINE NEGATIVE (NEGATIVE); URINE SPECIFIC GRAVITY 1.013; UROBILINOGEN,URINE NEGATIVE mg/dL (<2.0)
[2017-03-15] MEDS ORDERED: AMOXICILLIN TRIHYD 250 MG CAPSULE PO ONE (15:30)
[2017-03-15] MEDS ORDERED: AMOXICILLIN TR/POT CLAVULANATE 500-125 MG TAB PO ONE (15:30)
[2017-03-15 16:06] VITALS: BP 115/66
== END 2017-03-15 16:25 | disposition home or self-care (01) ==
LOC: ER 12:18
DX: N61.0 Mastitis without abscess (principal); N71.9 Inflammatory disease of uterus, unspecified; R10.2 Pelvic and perineal pain; R50.9 Fever, unspecified; M54.5 Low back pain
CPT/HCPCS: 99284; 96361; 51701; 96375; 96365; 36415; 87040; 87086; 85025; 80053; 81001; J3490; J2405; J7030; J0696

== ENCOUNTER 2017-05-08 21:14 | Emergency (ER) | payer OTHER ==
[2017-05-08] MEDS ORDERED: ONDANSETRON HCL INJ/PF 4 MG/2 ML SDV IV ONE (22:20)
[2017-05-08] MEDS ORDERED: NORMAL SALINE 1000 ML 1,000 ML IV PRN (22:21)
[2017-05-08 22:53] LABS: ABSOLUTE LYMPHOCYTES (AUTO) 0.5 10^3/uL (0.5-4.7); ABSOLUTE MONOCYTES (AUTO) 0.3 10^3/uL (0.1-1.4); ABSOLUTE NEUT (AUTO) 5.9 10^3/uL (1.7-8.2); BASOPHILS % (AUTO) 0.2 % (0-2); EOSINOPHILS % (AUTO) 0.5 % (0-6); HEMATOCRIT 40.3 % (36.0-47.0); HEMOGLOBIN 13.8 g/dL (12.0-15.5); HGB HCT DIFFERENCE 1.1; LYMPHOCYTES % (AUTO) 7.4 % (13-45); MEAN CORPUSCULAR HEMOGLOBIN 30.5 pg (27.0-33.4); MEAN CORPUSCULAR HGB CONC 34.3 g/dL (32.0-36.0); MEAN CORPUSCULAR VOLUME 89 fl (80-97); MONOCYTES % (AUTO) 4.9 % (3-13); RED BLOOD COUNT 4.53 10^6/uL (3.72-5.28); RED CELL DISTRIBUTION WIDTH 14.5 % (11.5-14.0); WHITE BLOOD COUNT 6.8 10^3/uL (4.0-10.5)
[2017-05-08] MEDS ORDERED: ONDANSETRON 4 MG TAB.RAPDIS PO ONE (23:02)
[2017-05-08 23:09] LABS: ALANINE AMINOTRANSFERASE 57 U/L (9-52); ALBUMIN 4.6 g/dL (3.5-5.0); ALKALINE PHOSPHATASE 91 U/L (38-126); ANION GAP 13 (5-19); ASPARTATE AMINO TRANSFERASE 33 U/L (14-36); BILIRUBIN,DIRECT 0.4 mg/dL (0.0-0.4); BILIRUBIN,TOTAL 0.7 mg/dL (0.2-1.3); BLOOD UREA NITROGEN 12 mg/dL (7-20); CALCIUM 9.2 mg/dL (8.4-10.2); CARBON DIOXIDE 26 mmol/L (22-30); CHLORIDE 105 mmol/L (98-107); CREATININE RESULT 0.71 mg/dL (0.52-1.25); GLUCOSE 94 mg/dL (75-110); LIPASE 39.3 U/L (23-300); POTASSIUM 3.8 mmol/L (3.6-5.0); SODIUM 143.7 mmol/L (137-145); TOTAL PROTEIN 7.2 g/dL (6.3-8.2)
--- NOTE | 2017-05-08 23:10 | ER Document Report ---
HPI - HPI Pain Level: 2 Notes: Patient is a 21-year-old female who presents the ED complaining of nausea, vomiting, abdominal cramping for the last 8 hours status post eating a reheated meal. Patient states that her abdominal cramping is intermittent and she has vomited about 6 times. Patient states that she is still able to tolerate p.o. No recent antibiotic use or travel. Patient states that otherwise she feels well without any other concerns or complaints. She denies any recent illness. + h/o Hep C. Patient states that she still urinating normally and having normal bowel movements. Denies any headache, fever, neck pain, URI, sore throat , chest pain, palpitations, syncope, cough, shortness of breath, wheeze, dyspnea , diarrhea, urinary retention, dysuria, hematuria, joint pains, back pain, or rash. - ROS Notes: REVIEW OF SYSTEMS: CONSTITUTIONAL : Denies fever, chills, or sweats. Denies recent illness. EENT: Denies eye, ear, throat, or mouth pain or symptoms. Denies nasal or sinus congestion or discharge. Denies throat, tongue, or mouth swelling or difficulty swallowing. CARDIOVASCULAR: Denies chest pain. Denies palpitations or racing or irregular heart beat. RESPIRATORY: Denies cough, cold, or chest congestion. Denies shortness of breath, difficulty breathing, or wheezing. GASTROINTESTINAL: see hpi. no melena, hematochezia, hematemesis GENITOURINARY: Denies difficulty urinating, painful urination, burning, frequency, blood in urine, or discharge. FEMALE GENITOURINARY: Denies vaginal bleeding, heavy or abnormal periods, irregular periods. Denies vaginal discharge or odor. MUSCULOSKELETAL: Denies back or neck pain or stiffness. Denies joint pain or swelling. SKIN: Denies rash, lesions or sores. NEUROLOGICAL: Denies confusion or altered mental status. Denies passing out or loss of consciousness. Denies dizziness or lightheadedness. Denies headache. Denies weakness or paralysis or loss of use of either side. Denies problems with gait or speech. Denies sensory loss, numbness, or tingling. ALL OTHER SYSTEMS REVIEWED AND NEGATIVE. Dictation was performed using [employer] voice recognition software - DERM Skin Color: Normal Past Medical History - Social History Smoking Status: Unknown if Ever Smoked Family History: Reviewed & Not Pertinent Patient has suicidal ideation: No Patient has homicidal ideation: No Renal/ Medical History: Denies: Hx Peritoneal Dialysis Vertical Provider Document - CONSTITUTIONAL Agree With Documented VS: Yes Notes: PHYSICAL EXAMINATION: GENERAL: Well-appearing, well-nourished and in no acute distress. Appears comfortable. Moving around room/table in no distress or discomfort HEAD: Atraumatic, normocephalic. EYES: Pupils equal round and reactive to light, extraocular movements intact, sclera anicteric, conjunctiva are normal. ENT: EAC clear b/l. TM's intact b/l without erythema, fluid, or perforation. Nares patent and without discharge. oropharynx clear without exudates. No tonsilar hypertrophy or erythema. Moist mucous membranes. No sinus tenderness. NECK: Normal range of motion, supple without lymphadenopathy. No rigidity/ meningismus. LUNGS: Breath sounds clear to auscultation bilaterally and equal. No wheezes rales or rhonchi. HEART: Regular rate and rhythm without murmurs, rubs, gallops. ABDOMEN: Soft, nontender, nondistended abdomen. No guarding, no rebound. No masses appreciated. Normal bowel sounds present. No CVA tenderness bilaterally. Musculoskeletal: FROM to passive/active. Strength 5+/5. Extremities: No cyanosis, clubbing, or edema b/l. Peripheral pulses 2+. Capillary refill less than 3 seconds. NEUROLOGICAL: Normal speech, normal gait. Normal sensory, motor exams PSYCH: Normal mood, normal affect. SKIN: Warm, Dry, normal turgor, no rashes or lesions noted. - INFECTION CONTROL TRAVEL OUTSIDE OF THE [place] IN LAST 30 DAYS: No - RESPIRATORY O2 Sat by Pulse Oximetry: 99 Course - Re-evaluation Re-evalutation: 05/08/17 23:31 Patient is an afebrile, well-hydrated, 21-year-old female who presents to the ED with nausea and vomiting. Vitals are stable. PE is otherwise unremarkable. CBC, CMP, lipase, hCG unremarkable for any acute pathology. Patient is tolerating p.o. without any difficulties. Patient declined an IV and IV fluids. Zofran was given p.o. Patient declined urinalysis. Patient states that overall she is feeling better than when she arrived, but does continue to have intermittent nausea. Patient only vomited once while in the ED. No imaging warranted based on H&P today. Patient had a nontender abdomen that was soft. I will send her home with a prescription for Zofran. Conservative measures for symptoms otherwise. Recheck with your PCM in 3-5 days. You may recheck with your strapper operator as well if needed. Return to the ED with any worsening/concerning symptoms otherwise as reviewed in discharge. Patient is in agreement. Low suspicion/risk for acute appendicitis, bowel obstruction, acute cholecystitis, acute cholangitis, perforated diverticulitis, incarcerated hernia , pancreatitis, perforated ulcer, peritonitis, sepsis, pelvic inflammatory disease, ectopic , tubo-ovarian abscess, ovarian torsion, or other systemic emergent condition at this time. Patient is aware that her condition can change from initial presentation and she needs to monitor symptoms closely and seek medical attention if any acute changes. - Vital Signs Vital signs: Temp Pulse Resp BP Pulse Ox 98.6 F 102 H 18 127/76 H 99 05/08/17 21:53 05/08/17 21:53 05/08/17 21:53 05/08/17 21:53 05/08/17 21:53 - Laboratory Result Diagrams: 05/08/17 22:40 05/08/17 22:40 Laboratory results interpreted by me: 05/08/17 22:40 RDW 14.5 H Seg Neutrophils % 87.0 H Lymphocytes % 7.4 L Discharge - Discharge Clinical Impression: Nausea and vomiting Qualifiers: Vomiting type: unspecified Vomiting Intractability: non-intractable Qualified Code(s): R11.2 - Nausea with vomiting, unspecified Condition: Stable Disposition: HOME, SELF-CARE Instructions: Antinausea Medication ([facility]), Vomiting ([facility]) Additional Instructions: Maintain adequate fluid and food intake [place] diet ([employer] Bananas, rice, apples, toast, etc Zofran as needed tylenol if needed Monitor for any worsening symptoms Make sure you are staying hydrated enough to urinate and have normal BM's Recheck with your PCM in 3-5 days Consider consult with Gastroenterology for ongoing/worsening symptoms Return to the ED with any worsening symptoms and/or development of fever, headache, chest pain, palpitations, syncope, shortness of breath, trouble breathing, abdominal pain, n/v/d, blood in stool/urine, weakness, or other worsening symptoms that are concerning to you. Prescriptions: Ondansetron [Zofran Odt 4 mg Tablet] 1 - 2 tab PO Q4H PRN #15 tab.rapdis PRN Reason: For Nausea/Vomiting Forms: Elevated Blood Pressure Referrals: MIKAL ALVARADO MD [Primary Care Provider] - Follow up as needed HAILEY ADAIR MD [ACTIVE STAFF] - Follow up as needed
[2017-05-08] MEDS ORDERED: ONDANSETRON ODT 4 MG TAB (6 TAB/DSPK) PO PRN (23:35)
[2017-05-09 00:15] VITALS: BP 121/74
== END 2017-05-09 00:15 | disposition home or self-care (01) ==
LOC: ER 21:14
DX: R11.2 Nausea with vomiting, unspecified (principal); R10.9 Unspecified abdominal pain
CPT/HCPCS: 99283; 36415; 84702; 83690; 85025; 80053; S0119

== ENCOUNTER → 2017-09-02 | Outpatient (CLI) | payer OTHER ==
--- NOTE | 2017-09-02 13:35 | RADIOLOGY REPORT (SQ) ---
EXAM DESCRIPTION: MRI HEAD WITHOUT COMPLETED DATE/TIME: 09/02/2017 1:24 pm REASON FOR STUDY: CHRONIC DAILY HEADACHE (R51), EPISODE OF CHANGE IN SPEECH (R47.89) R51 HEADACHE R 47.89 OTHER SPEECH DISTURBANCES COMPARISON: None. TECHNIQUE: Multiplanar imaging includes non-contrasted T1, T2, FLAIR, and diffusion with ADC map seq uences. Images stored on PACS. LIMITATIONS: None. FINDINGS: ANATOMY: No anomalies. Normal vascular flow voids. Pituitary fossa normal. CSF SPACES: Normal in size and contour. No hemorrhage. CEREBRUM: Sulci and gyri normal in size and contour. Normal white matter signal on FLAIR imaging. No evidence of hemorrhage, mass, or extraaxial fluid collection. POSTERIOR FOSSA: No signal alteration. No hemorrhage. No edema, masses or mass effect. Internal jones tory canals, cerebello-pontine angles, mastoids normal. DIFFUSION IMAGING: Negative for acute or sub-acute infarction. ORBITS: No masses. Globes normal. PARANASAL SINUSES: No fluid levels. Mucosa normal. OTHER: No other significant finding. IMPRESSION: NORMAL MRI OF THE BRAIN WITHOUT INTRAVENOUS GADOLINIUM CONTRAST. EVIDENCE OF ACUTE STROKE: No TECHNICAL DOCUMENTATION: JOB ID: [id number] [employer]- All Rights Reserved Reading location - IP/workstation name: [facility]-RR2
== END ==
LOC: RAD 12:16
PROVIDERS: ATTEND Psychiatry & Neurology Neurology
DX: R51 Headache (principal); R47.01 Aphasia; R47.89 Other speech disturbances
CPT/HCPCS: 70551

== ENCOUNTER 2017-09-10 20:24 | Emergency (ER) | payer OTHER ==
--- NOTE | 2017-09-10 20:46 | ER Document Report ---
ED Medical Screen (RME) - General Chief Complaint: Headache Stated Complaint: HEADACHE Time Seen by Provider: 09/10/17 20:38 Notes: 21-year-old female patient who initially triage reported coming here for chronic headaches for a few months and recent MRI that she had not received a report on. Later she changed her complaint to stating she actually came here because of blood in her right ear. She also reports she saw an cell geneticist that told her she had increased pressure in her eyes and needed to see a neurologist. When I told her increased pressure in the eyes is glaucoma that the cell geneticist treats, she states they told her the pressure was inside her head in her brain. She states she is not really having headaches but just has extreme pressure sensation. I have greeted and performed a rapid initial assessment of this patient. A comprehensive ED assessment and evaluation of the patient, analysis of test results and completion of the medical decision making process will be conducted by additional ED providers. TRAVEL OUTSIDE OF THE [place] IN LAST 30 DAYS: No - Related Data Allergies/Adverse Reactions: acyclovir Allergy (Verified 09/10/17 20:26) iodine Allergy (Verified 09/10/17 20:26) Past Medical History Renal/ Medical History: Denies: Hx Peritoneal Dialysis Physical Exam - Vital signs Vitals: Temp Pulse Resp BP Pulse Ox 98.0 F 80 18 119/62 99 09/10/17 20:37 09/10/17 20:37 09/10/17 20:37 09/10/17 20:37 09/10/17 20:37 Course - Vital Signs Vital signs: Temp Pulse Resp BP Pulse Ox 98.0 F 80 18 119/62 99 09/10/17 20:37 09/10/17 20:37 09/10/17 20:37 09/10/17 20:37 09/10/17 20:37
--- NOTE | 2017-09-10 23:38 | ER Document Report ---
ED General - General Chief Complaint: Headache Stated Complaint: HEADACHE Time Seen by Provider: 09/10/17 20:38 Mode of Arrival: Ambulatory Information source: Patient Notes: 21-year-old female with no reported medical history presents with complaint of blood in the right ear. Patient states she was cleaning her ear when she removed a Q-tip she saw blood on it. Patient has recently been seen by neurology for head pressure. MRI was obtained and reviewed and within normal limits. Has also recently been seen by ophthalmology who told her that she had elevated eye pressures but they do not believe this is glaucoma. She currently denies fever, chills, chest pain, headache, slurred speech, weakness, abdominal pain, ear pain, sore throat, nasal congestion. She is supposed to return to her neurologist in 1 week. TRAVEL OUTSIDE OF THE [place] IN LAST 30 DAYS: No - HPI Onset: Other Onset/Duration: Gradual Quality of pain: Pressure Severity: Mild Associated symptoms: denies: Chest pain, Nonproductive cough, Headache, Nausea, Vomiting, Sore throat, Weakness Exacerbated by: Denies Relieved by: Denies Similar symptoms previously: No Recently seen / treated by doctor: Yes - Related Data Allergies/Adverse Reactions: acyclovir Allergy (Verified 09/10/17 20:26) iodine Allergy (Verified 09/10/17 20:26) Past Medical History - General Information source: Patient - Social History Smoking Status: Never Smoker Chew tobacco use (# tins/day): No Frequency of alcohol use: None Drug Abuse: None Lives with: Family Family History: Reviewed & Not Pertinent Patient has suicidal ideation: No Patient has homicidal ideation: No - Medical History Medical History: Negative Renal/ Medical History: Denies: Hx Peritoneal Dialysis Review of Systems - Review of Systems Notes: She currently denies fever, chills, chest pain, headache, slurred speech, visual changes, weakness, abdominal pain, ear pain, sore throat, nasal congestion, disequilibrium, difficulty with ambulation. Constitutional: See HPI EENT: See HPI. denies: Eye pain, Eye discharge, Blurred vision, Throat pain Physical Exam - Vital signs Vitals: Temp Pulse Resp BP Pulse Ox 98.0 F 80 18 119/62 99 09/10/17 20:37 09/10/17 20:37 09/10/17 20:37 09/10/17 20:37 09/10/17 20:37 - HEENT Head: Normocephalic, Atraumatic Eyes: Normal Conjunctiva: Normal Extraocular movements intact: Yes Pupils: PERRL Ears: Normal External canal: Normal Tympanic membrane: Normal Sinus: Normal Nasal: Normal Mouth/Lips: Normal Mucous membranes: Normal Pharynx: Normal Neck: No: Anterior cervical chain - Respiratory Respiratory status: No respiratory distress Chest status: Nontender Breath sounds: Normal Chest palpation: Normal - Cardiovascular Rhythm: Regular Heart sounds: Normal auscultation Murmur: No Pulses: Normal: Radial Normal capillary refill: Yes - Neurological Neuro grossly intact: Yes Cognition: Normal Orientation: AAOx4 Courtney Coma Scale Eye Opening: Spontaneous [place] Coma Scale Verbal: Oriented [place] Coma Scale Motor: Obeys Commands [place] Coma Scale Total: 15 Speech: Normal Cranial nerves: Normal Cerebellar coordination: Normal Motor strength normal: LUE, RUE, LLE, RLE 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 09/11/17 19:58 21 y/o female presents after seeing blood on q-tip after cleaning right ear. VSS. patient does not appear toxic or dehydrated, she is in no acute distress. Patient also mentions that she has been experiencing pressure in her head diffusely for a few months now. She has recently underwent MRI after neurolgy f/ u for this complaint. This was reviewed and wnl. Patient also mentions she was seen by ophthalmology and told she has increased pressures in her eyes but states they told her no intervention was needed. Patient also mentions that " the doctor up front told me I need a spinal tap". After reviewing patient's records there is no mention of possible diagnosis of Pseudotumor cerebri ( idiopathic intracranial hypertension). She currently has no headache just mild pressure and she is without deficits. We did discuss what a lumbar puncture requires and the patient adamantly declines. Exam of her ears is pristine. She has neurology f/u in three weeks. I do not believe any acute intervention is needed at this time. - Vital Signs Vital signs: Temp Pulse Resp BP Pulse Ox 97.3 F 74 16 112/68 100 09/11/17 00:09 09/11/17 00:09 09/11/17 00:09 09/11/17 00:09 09/11/17 00:09 Discharge - Discharge Clinical Impression: Pressure in head, Blood in right ear canal Condition: Good Disposition: HOME, SELF-CARE Instructions: Headache ([facility]) Referrals: NILESH BAGLEY MD [NO LOCAL MD] - Follow up as needed (As already scheduled)
[2017-09-11 00:12] VITALS: BP 112/68
== END 2017-09-11 00:15 | disposition home or self-care (01) ==
LOC: ER 20:24
DX: R51 Headache (principal); H92.21 Otorrhagia, right ear
CPT/HCPCS: 99283

== ENCOUNTER 2018-01-03 21:12 | Emergency (ER) | payer OTHER ==
[2018-01-03] MEDS ORDERED: METOCLOPRAMIDE HCL INJ/PF 10 MG/2 ML SDV IV ONE (22:26)
[2018-01-03] MEDS ORDERED: DIPHENHYDRAMINE HCL 50 MG/ML VIAL IV ONE (22:26)
[2018-01-03] MEDS ORDERED: NORMAL SALINE 1000 ML 1,000 ML IV ONE (22:26)
--- NOTE | 2018-01-03 22:28 | EKG REPORT ---
SEVERITY:- NORMAL ECG - SINUS RHYTHM : Confirmed by: Radha Pereira MD 03-Jan-2018 22:28:08
--- NOTE | 2018-01-03 22:34 | ER Document Report ---
ED General - General Chief Complaint: Passed Out Prior to Arrival Stated Complaint: LIGHT HEADED/ FAINTED PRIOR TO ARRIVAL Time Seen by Provider: 01/03/18 22:05 Mode of Arrival: Ambulatory Information source: Patient, [facility] Records Notes: 22-year-old female with no reported past medical history presents with complaint of head pressure, lightheadedness, nausea and blurred vision. Patient states that head pressure has been ongoing for 1 year. She has been under neurology care, ophthalmology care. She has had an MRI in August 2017 which was normal. She admits to not following up with her neurologist because "I know he is going to tell me I need another MRI". 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 Patient states that today her head pressure worsened and she had a change in her vision. She reports that she was seen by ophthalmology recently and was told her eyes were in good condition and that she should return to have the neurologist Dr. Romo. Patient denies any fever, chills,, chest pain, shortness of breath, abdominal pain. She does admit to associated nausea without vomiting. TRAVEL OUTSIDE OF THE [place] IN LAST 30 DAYS: No - HPI Onset: Other Onset/Duration: Persistent, Worse Quality of pain: Pressure Severity: Mild Associated symptoms: Nausea, Other - Lightheadedness Exacerbated by: Denies Relieved by: Denies Similar symptoms previously: Yes Recently seen / treated by doctor: Yes - Related Data Allergies/Adverse Reactions: acyclovir Allergy (Verified 09/10/17 20:26) iodine Allergy (Verified 09/10/17 20:26) Past Medical History - General Information source: Patient - Social History Smoking Status: Never Smoker Chew tobacco use (# tins/day): No Frequency of alcohol use: None Drug Abuse: None Lives with: Family Family History: Reviewed & Not Pertinent Patient has suicidal ideation: No Patient has homicidal ideation: No - Medical History Medical History: Negative Renal/ Medical History: Denies: Hx Peritoneal Dialysis Review of Systems - Review of Systems Notes: REVIEW OF SYSTEMS: CONSTITUTIONAL : Denies fever, chills, or sweats. Denies recent illness. Denies weight loss, recent hospitalizations. EENT: Denies visual changes, eye pain. Denies nasal or sinus congestion or discharge. Denies sore throat, oral lesions, difficulty swallowing. CARDIOVASCULAR: Denies chest pain. Denies palpitations. Denies lower extremity edema. RESPIRATORY: Denies cough, cold, or chest congestion. Denies shortness of breath, wheezing. GASTROINTESTINAL: Denies abdominal pain or distention. Denies nausea, vomiting , or diarrhea. Denies blood in vomitus, stools, or per rectum. Denies black, tarry stools. Denies constipation. GENITOURINARY: Denies difficulty urinating, painful urination, frequency, blood in urine, or vaginal discharge. MUSCULOSKELETAL: Denies back or neck pain or stiffness. Denies joint pain or swelling. SKIN: Denies rash, lesions or sores. HEMATOLOGIC : Denies easy bruising or bleeding. LYMPHATIC: Denies swollen glands. NEUROLOGICAL: Denies confusion or altered mental status. Denies passing out or loss of consciousness. Denies weakness or paralysis. Denies problems difficulty with ambulation, slurred speech. Denies sensory loss, numbness, or tingling. Denies seizures. PSYCHIATRIC: Denies anxiety or stress. Denies depression, suicidal ideation, or homicidal ideation. Denies visual or auditory hallucinations. Physical Exam - Vital signs Vitals: Temp Pulse Resp BP Pulse Ox 97.9 F 80 18 121/75 96 01/03/18 21:19 01/03/18 21:19 01/03/18 21:19 01/03/18 21:19 01/03/18 21:19 Interpretation: No: Hypertensive, Febrile - Notes Notes: PHYSICAL EXAMINATION: GENERAL: Well-appearing, well-nourished and in no acute distress. HEAD: Atraumatic, normocephalic. EYES: Pupils equal round and reactive to light, extraocular movements intact, conjunctiva are normal. ENT: Nares patent, oropharynx clear without exudates. Moist mucous membranes. NECK: Normal range of motion, supple without lymphadenopathy LUNGS: Breath sounds clear to auscultation bilaterally and equal. No wheezes rales or rhonchi. HEART: Regular rate and rhythm without murmurs ABDOMEN: Soft, nontender, nondistended abdomen. No guarding, no rebound. No masses appreciated. Female : deferred Musculoskeletal: Normal range of motion, no pitting or edema. No cyanosis. NEUROLOGICAL: Cranial nerves grossly intact. Normal speech, normal gait. Normal sensory, motor exams PSYCH: Normal mood, normal affect. SKIN: Warm, Dry, normal turgor, no rashes or lesions noted. Course - Re-evaluation Re-evalutation: 22-year-old female with no reported past medical history presents with complaint of head pressure, lightheadedness, nausea and blurred vision. Patient states that head pressure has been ongoing for 1 year. She has been under neurology care, ophthalmology care. She has had an MRI in August 2017 which was normal. She admits to not following up with her neurologist because "I know he is going to tell me I need another MRI". Patient was seen by myself upon arrival. Vital signs were reviewed. Patient is afebrile, normotensive and not hypoxic. Patient does not appear toxic or dehydrated. They are in no acute distress. Previous medical records and nursing notes reviewed. 01/03/18 22:46 Patient declining lumbar puncture to assess opening pressures, IV fluids, Reglan , Benadryl. Patient again advised to follow-up with her neurologist. Patient provided the opportunity to ask questions, and express concerns. Discharge instructions discussed. Patient is agreeable with discharge home. Return indications explained and discussed with the patient who displays understanding. Patient encouraged to return to the emergency department immediately with any concerns. 01/03/18 22:47 01/03/18 22:48 - Vital Signs Vital signs: Temp Pulse Resp BP Pulse Ox 97.9 F 80 18 121/75 96 01/03/18 21:19 01/03/18 21:19 01/03/18 21:19 01/03/18 21:19 01/03/18 21:19 Discharge - Discharge Clinical Impression: Pressure in head, Blurred vision, bilateral Condition: Good Disposition: HOME, SELF-CARE Instructions: Headache ([facility]) Additional Instructions: Please follow-up with your neurologist Dr. Romo.
[2018-01-03 23:04] VITALS: BP 111/60
== END 2018-01-03 23:05 | disposition home or self-care (01) ==
LOC: ER 21:12
DX: H53.8 Other visual disturbances (principal); R11.0 Nausea; R42 Dizziness and giddiness; Z88.3 Allergy status to other anti-infective agents
CPT/HCPCS: 93005; 93010; 99284

== ENCOUNTER 2018-05-13 20:06 | Emergency (ER) | payer OTHER ==
[2018-05-13 20:18] VITALS: BP 116/74
--- NOTE | 2018-05-13 22:25 | RADIOLOGY REPORT (SQ) ---
EXAM DESCRIPTION: XR THORACIC SPINE 2 VIEWS COMPLETED DATE/TME: 05/13/2018 20:17 CLINICAL HISTORY: 22 years, Female, fall/pain COMPARISON: None. NUMBER OF VIEWS: Two TECHNIQUE: AP and lateral views LIMITATIONS: None. FINDINGS: There is no evidence of fracture or dislocation. The thoracic vertebrae are normal in height and alignment. The disc spaces are well preserved in height. No significant degenerative changes are identified. No lytic or sclerotic bone lesions are seen. The pedicles appear intact bilaterally and are symmetric. The surrounding soft tissues are unremarkable. There is partial visualization of the lumbar spine which demonstrates postsurgical changes. IMPRESSION: No evidence of acute osseous abnormality involving the thoracic spine.
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
== END 2018-05-13 22:58 | disposition home or self-care (01) ==
LOC: ER 20:06
DX: M54.5 Low back pain (principal); W01.0XXA Fall on same level from slipping, tripping and stumbling without subsequent striking against object, initial encounter; Y92.002 Bathroom of unspecified non-institutional (private) residence as the place of occurrence of the external cause; Z98.890 Other specified postprocedural states; Z88.3 Allergy status to other anti-infective agents
CPT/HCPCS: 36415; 72070; 72110; 72220; 84703; 99283

== ENCOUNTER → 2018-06-28 | Outpatient (CLI) | payer OTHER ==
--- NOTE | 2018-06-28 11:46 | RADIOLOGY REPORT (SQ) ---
EXAM DESCRIPTION: CT LUMBAR SPINE WITHOUT COMPLETED DATE/TIME: 06/28/2018 10:33 am REASON FOR STUDY: POST OP LUMBAR FUSION S32.000A WEDGE COMPRESSION FRACTURE OF UNSP LUMBAR VERTEBRA , COMPARISON: X-ray dated 05/13/2018. TECHNIQUE: Axial images acquired through the lumbar spine without intravenous contrast. Images revi ewed with lung, soft tissue and bone windows. Reconstructed coronal and sagittal MPR images reviewed . All images stored on PACS. All CT scanners at this facility use dose modulation, iterative reconstruction, and/or weight based d osing when appropriate to reduce radiation dose to as low as reasonably achievable (ALARA). [facility]: Dose Right [facility]: CareDose [facility]: Dose Right [facility]: Teradose 4D [facility]: [employer] RADIATION DOSE: CT Rad equipment meets quality standard of care and radiation dose reduction techniq ues were employed. CTDIvol: 4.6 mGy. DLP: 138 mGy-cm. mGy. LIMITATIONS: None. FINDINGS: SEGMENTATION: Normal. No transitional anatomy. ALIGNMENT: Normal. VERTEBRAL BODIES: Old burst fracture of the L3 vertebra. No bony union. The remainder the lumbar ve rtebrae are intact. DISCS: No significant protrusions. Study limited by lack of intrathecal contrast. PEDICLES, TRANSVERSE PROCESSES: No fractures. No dislocation. No acute findings. FACETS, POSTERIOR ELEMENTS: No fractures. No dislocation. Posterior fusion. . HARDWARE: Posterior hardware extending from L1-L5 with pedicular screws and rods. VISUALIZED RIBS: No fractures. SOFT TISSUES: No significant or acute finding in adjacent soft tissues. OTHER: No other significant finding. IMPRESSION: OLD BURST FRACTURE OF THE L3 VERTEBRA. NO EVIDENCE OF UNION OF THE BONY FRAGMENTS. KAMALJIT GICAL CHANGES WITH POSTERIOR FUSION AND HARDWARE. NO ACUTE FINDINGS. TECHNICAL DOCUMENTATION: JOB ID: [id number] Quality ID # [id number]: Final reports with documentation of one or more dose reduction techniques (e.g., Au tomated exposure control, adjustment of the mA and/or kV according to patient size, use of iterative reconstruction technique) 2010 [employer]- All Rights Reserved Reading location - IP/workstation name: [email or web address]
== END ==
LOC: RAD 10:08
PROVIDERS: ATTEND Neurological Surgery
DX: S32.000A Wedge compression fracture of unspecified lumbar vertebra, initial encounter for closed fracture (principal); X58.XXXA Exposure to other specified factors, initial encounter; Y93.9 Activity, unspecified; Y92.9 Unspecified place or not applicable
CPT/HCPCS: 72131

== ENCOUNTER → 2018-07-02 | Outpatient (CLI) | payer OTHER ==
--- NOTE | 2018-07-02 15:54 | RADIOLOGY REPORT (SQ) ---
EXAM DESCRIPTION: L SPINE FLEX/EXT ONLY COMPLETED DATE/TIME: 07/02/2018 3:02 pm REASON FOR STUDY: WEDGE COMPRESSION FRACTURE OF UNSP LUMBAR VERTEBRA, INIT S32.000A WEDGE COMPRESSI ON FRACTURE OF UNSP LUMBAR VERTEBRA, COMPARISON: 05/13/2018. NUMBER OF VIEWS: Two view. TECHNIQUE: Lateral views of the lumbar spine with flexion and extension. LIMITATIONS: None. FINDINGS: MINERALIZATION: Normal. SEGMENTATION: Normal. No transitional anatomy. ALIGNMENT: Normal. FLEXION/EXTENSION: Anterolisthesis of L2 on L3 measure 6 mm with flexion and 4 mm with extension. VERTEBRAE: Burst compression fracture of L3. Otherwise intact. DISCS: Preserved height. No significant osteophytes or end plate irregularity. POSTERIOR ELEMENTS: Pedicles and facets are intact. No pars defect or posterior arch defects. HARDWARE: Posterior hardware extending from L1-L5. OTHER: No other significant finding. IMPRESSION: BURST COMPRESSION FRACTURE OF L3 WITH ANTERIOR HARDWARE FROM L1-L5. MILD MOTION OF L2 ON L3 WITH FLEXION AND EXTENSION. TECHNICAL DOCUMENTATION: JOB ID: [id number] [employer]- All Rights Reserved Reading location - IP/workstation name: [email or web address]
== END ==
LOC: RAD 14:21
PROVIDERS: ATTEND Neurological Surgery
DX: S32.000A Wedge compression fracture of unspecified lumbar vertebra, initial encounter for closed fracture (principal); X58.XXXA Exposure to other specified factors, initial encounter
CPT/HCPCS: 72120

== ENCOUNTER 2018-09-29 21:38 | Emergency (ER) | payer OTHER | END 2018-09-29 22:50 | disposition left against medical advice (07) | LOC: ER 21:38 | DX: Z53.21 Procedure and treatment not carried out due to patient leaving prior to being seen by health care provider (principal) ==

== ENCOUNTER 2019-01-07 19:35 | Emergency (ER) | payer SELFPAY ==
[2019-01-07] MEDS ORDERED: NORMAL SALINE 1000 ML 1,000 ML IV ONE (21:06)
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
[2019-01-07 22:41] LABS: ABSOLUTE LYMPHOCYTES (AUTO) 0.8 10^3/uL (0.5-4.7); ABSOLUTE MONOCYTES (AUTO) 0.5 10^3/uL (0.1-1.4); ABSOLUTE NEUT (AUTO) 5.2 10^3/uL (1.7-8.2); BASOPHILS % (AUTO) 0.3 % (0-2); EOSINOPHILS % (AUTO) 0.1 % (0-6); HEMATOCRIT 45.6 % (36.0-47.0); HEMOGLOBIN 15.5 g/dL (12.0-15.5); LYMPHOCYTES % (AUTO) 12.8 % (13-45); MEAN CORPUSCULAR HEMOGLOBIN 31.2 pg (27.0-33.4); MEAN CORPUSCULAR VOLUME 92 fl (80-97); MONOCYTES % (AUTO) 8.1 % (3-13); PLATELET COUNT 155 10^3/uL (150-450); RED BLOOD COUNT 4.98 10^6/uL (3.72-5.28); RED CELL DISTRIBUTION WIDTH 13.9 % (11.5-14.0); SEGMENTED NEUTROPHILS % (AUTO) 78.7 % (42-78); TOTAL CELLS COUNTED % (AUTO) 100 %; WHITE BLOOD COUNT 6.6 10^3/uL (4.0-10.5)
[2019-01-07 22:59] LABS: ALANINE AMINOTRANSFERASE 21 U/L (9-52); ALKALINE PHOSPHATASE 104 U/L (38-126); ANION GAP 9 (5-19); ASPARTATE AMINO TRANSFERASE 20 U/L (14-36); BILIRUBIN,DIRECT 0.2 mg/dL (0.0-0.4); BILIRUBIN,TOTAL 0.7 mg/dL (0.2-1.3); BLOOD UREA NITROGEN 10 mg/dL (7-20); CALCIUM 9.7 mg/dL (8.4-10.2); CARBON DIOXIDE 27 mmol/L (22-30); CHLORIDE 102 mmol/L (98-107); GLUCOSE 86 mg/dL (75-110); POTASSIUM 3.8 mmol/L (3.6-5.0); TOTAL PROTEIN 8.4 g/dL (6.3-8.2)
[2019-01-07 23:34] LABS: APPEARANCE,URINE SLIGHTLY-CLOUDY; BILIRUBIN,URINE NEGATIVE (NEGATIVE); COLOR,URINE AMBER; GLUCOSE, URINE NEGATIVE (NEGATIVE); KETONES,URINE 20 mg/dL (NEGATIVE); LEUKOCYTE ESTERASE,URINE NEGATIVE (NEGATIVE); NITRITE,URINE NEGATIVE (NEGATIVE); PROTEIN,URINE NEGATIVE (NEGATIVE); URINE SPECIFIC GRAVITY 1.029
[2019-01-07 23:35] LABS: RBCS (WET MOUNT) NO RBCS SEEN; T.VAGINALIS (WET MOUNT) NO TRICHOMONAS SEEN; WBCS (WET MOUNT) FEW WBCS SEEN; YEAST (WET MOUNT) NO YEAST SEEN
[2019-01-08 00:59] LABS: CHLAM PCR NOT DETECTED (NOT DETECT)
[2019-01-08 01:07] VITALS: BP 124/58
[2019-01-08] MEDS ORDERED: ACETAMINOPHEN 325 MG TABLET PO ONE (01:29)
[2019-01-08] MEDS ORDERED: KETOROLAC TROMETHAMINE INJ/PF 30 MG/1 ML SDV IV ONE (01:29)
[2019-01-08] MEDS ORDERED: CEFTRIAXONE 1 GM/D5W RTU 1 GM/50 ML RTUPB IV ONE (01:30)
== END 2019-01-08 01:49 | disposition home or self-care (01) ==
LOC: ER 19:35
DX: R50.9 Fever, unspecified (principal); M54.5 Low back pain; R10.30 Lower abdominal pain, unspecified; R00.0 Tachycardia, unspecified; Z87.440 Personal history of urinary (tract) infections
CPT/HCPCS: 99283; 96361; 96375; 96365; 36415; 87210; 84703; 85025; 80053; 81001; 87491; 87591; J1885; J7030; J0696